=== PATIENT | female | born 1940 | race Caucasian/White ===

== ENCOUNTER → 2020-07-25 10:01 | Outpatient (BNVA) | payer MEDICARE, SELFPAY | PROVIDERS: PCP Internal Medicine; Visit Provider Hospitalist | DX: Q79.60 Ehlers-Danlos syndrome, unspecified (principal); K44.9 Diaphragmatic hernia without obstruction or gangrene; R06.00 Dyspnea, unspecified; K21.9 Gastro-esophageal reflux disease without esophagitis | CPT/HCPCS: Q3014 ==

== ENCOUNTER 2021-01-22 09:44 | Outpatient (REF) | payer MEDICARE, SELFPAY ==
--- NOTE | ~2021-01-22 | XR_ITS ---
EXAMINATION: XR CHEST CLINICAL INFORMATION: Dyspnea. COMPARISON: CT chest dated 04/28/2019 TECHNIQUE: Two views of the chest were obtained. FINDINGS: No focal airspace consolidation. No pleural effusion or pneumothorax. Stable cardiomediastinal silhouette. Redemonstration of a large hiatal hernia. XR/XR chest 2V IMPRESSION: No acute cardiopulmonary findings. Stable hiatal hernia.
== END 2021-01-22 09:45 | disposition home or self-care (01) ==
LOC: HO.XRAY 09:44
PROVIDERS: PCP Internal Medicine; Visit Provider Hospitalist
DX: J44.9 Chronic obstructive pulmonary disease, unspecified (principal); J45.40 Moderate persistent asthma, uncomplicated; Q79.60 Ehlers-Danlos syndrome, unspecified; K21.9 Gastro-esophageal reflux disease without esophagitis; R06.00 Dyspnea, unspecified; K44.9 Diaphragmatic hernia without obstruction or gangrene
CPT/HCPCS: 71046; 99212

== ENCOUNTER → 2021-07-20 13:30 | Outpatient (BNVA) | payer MEDICARE, OTHER, SELFPAY | PROVIDERS: PCP Internal Medicine; Visit Provider Hospitalist | DX: R06.00 Dyspnea, unspecified (principal); R05.9 Cough, unspecified; J45.40 Moderate persistent asthma, uncomplicated; J44.9 Chronic obstructive pulmonary disease, unspecified; K44.9 Diaphragmatic hernia without obstruction or gangrene; Q79.60 Ehlers-Danlos syndrome, unspecified | CPT/HCPCS: Q3014 ==

== ENCOUNTER 2021-08-21 09:55 | Outpatient (REF) | payer MEDICARE, OTHER, SELFPAY ==
--- NOTE | ~2021-08-21 | XR_ITS ---
EXAMINATION: XR CHEST CLINICAL INFORMATION: COPD COMPARISON: Previous chest x-ray January [address] April 2019 TECHNIQUE: 2 views of the chest were obtained. FINDINGS: The cardiac and mediastinal contours are stable. Cardiac silhouette is slightly enlarged. The thoracic aorta is calcified and tortuous. There is an air-fluid level behind the heart compatible with an esophageal hernia. Hilar and mediastinal contours are otherwise unremarkable. The lungs are clear. There is no pleural effusion or pneumothorax. There are degenerative changes of the spine. XR/XR chest 2V IMPRESSION: No evidence for acute disease in the chest.
== END 2021-08-21 09:56 | disposition home or self-care (01) ==
LOC: HO.XRAY 09:55
PROVIDERS: PCP Internal Medicine; Visit Provider Hospitalist
DX: R05.9 Cough, unspecified (principal); J44.9 Chronic obstructive pulmonary disease, unspecified; R06.00 Dyspnea, unspecified; K21.9 Gastro-esophageal reflux disease without esophagitis; Q79.60 Ehlers-Danlos syndrome, unspecified; K44.9 Diaphragmatic hernia without obstruction or gangrene
CPT/HCPCS: 71046; 94618; 99212

== ENCOUNTER → 2021-08-29 09:42 | Outpatient (BNVA) | payer MEDICARE, OTHER, SELFPAY | PROVIDERS: PCP Internal Medicine; Visit Provider Hospitalist | DX: Z13.89 Encounter for screening for other disorder (principal) | CPT/HCPCS: Q3014 ==

== ENCOUNTER → 2021-11-19 10:33 | Outpatient (BNVA) | payer MEDICARE, OTHER, SELFPAY | PROVIDERS: PCP Internal Medicine; Visit Provider Hospitalist | DX: J44.9 Chronic obstructive pulmonary disease, unspecified (principal) | CPT/HCPCS: Q3014 ==

== ENCOUNTER 2023-02-17 10:48 | Outpatient (REF) | payer MEDICARE, OTHER, SELFPAY ==
--- NOTE | ~2023-02-17 | XR_ITS ---
EXAMINATION: XR CHEST CLINICAL INFORMATION: Fever, unspecified COMPARISON: Chest 08/21/2021 TECHNIQUE: 2 views of the chest were obtained. FINDINGS: There is stable mild enlargement of the cardiac silhouette. The thoracic aorta is calcified and tortuous. There is a large hiatal hernia. The lungs are clear. No focal consolidation. No pleural effusion. There are moderate degenerative changes of the thoracic spine. XR/XR chest 2V IMPRESSION: No acute cardiopulmonary disease.
[2023-02-17 12:21] LABS: Influenza A PCR NEGATIVE (Negative); Influenza B PCR NEGATIVE (Negative); Resp Syncy Virus RNA Qual PCR NEGATIVE (Negative); SARS COV2 PCR INHOUSE NEGATIVE (Negative)
[2023-02-17 14:28] LABS: Appearance Urine Cloudy; Color Urine Dark Yellow; Glucose Urine UA Negative (Negative); Leukocyte Esterase Urine Small (1+) (Negative); Nitrite Urine Negative (Negative); PH 5.5 (5.0-9.0); UMIC TRIGGER UACC YES; Urine Blood Negative (Negative); Urine Ketones Trace mg/dL (Negative); Urine Protein 30 (1+) mg/dL (Neg-Trace)
[2023-02-17 14:55] LABS: Bacteria Urine None Seen (None Seen); UACC Culture Trigger YES; WBC Urine 0-5 /HPF (0-5)
== END 2023-02-17 10:49 | disposition home or self-care (01) ==
LOC: HO.LAB 10:48
PROVIDERS: PCP Internal Medicine; Visit Provider Hospitalist
DX: Z20.822 Contact with and (suspected) exposure to COVID-19 (principal); R50.9 Fever, unspecified; K21.00 Gastro-esophageal reflux disease with esophagitis, without bleeding; R06.00 Dyspnea, unspecified; K44.9 Diaphragmatic hernia without obstruction or gangrene; Q79.60 Ehlers-Danlos syndrome, unspecified; J44.9 Chronic obstructive pulmonary disease, unspecified; R01.1 Cardiac murmur, unspecified
CPT/HCPCS: 0241U; 71046; 81001; 87086; 99212

== ENCOUNTER 2023-02-17 10:48 | Outpatient (AMB) | payer MEDICARE, OTHER, SELFPAY ==
--- NOTE | 2023-02-17 10:54 | A.OFFVIS_ITS ---
Intake Vital Signs 02/17/23 10:56 Height 5 ft 1 in Weight 142 lb BMI 26.8 BP not taken reason Medical Reason Pulse 77 Pulse Source Pulse Oximeter Pulse Oximetry (%) 97 Oxygen Delivery Method Room Air Intake Visit Reasons: Asthma/COPD [employer] Officer Required: No Allergies albuterol [Ventolin HFA] Allergy (Severe, Verified 02/17/23 10:58) Difficulty Breathing aspirin Allergy (Severe, Verified 02/17/23 10:58) Internal Bleeding diazepam Allergy (Severe, Verified 02/17/23 10:58) Anaphylaxis lisinopril Allergy (Severe, Verified 02/17/23 10:58) Drop BP morphine Allergy (Severe, Verified 02/17/23 10:58) muscle spasm Procaine HCl Allergy (Severe, Uncoded 02/17/23 10:58) muscle spasm HPI HPI Comments History of Present Illness Details The patient is a 83-year-old woman with 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 She has a large hiatal hernia and is has significant reflux symptoms along with recurrent pneumonias. She is having issues with neuropathies and lower extremity weakness. 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 She is also feeling dizzy as well as the weakness. She is not sure of the symptoms have to do anything with her neck or for has do with the respiratory issues. Recently she had a fall hurting her right side of her chest. She did have x-rays done by her primary care doctor. No obvious fractures. But, still having significant chest discomfort. Respiratory phasic in nature. After few months she still having discomfort. Therefore, additional imaging studies are warranted. She did have a CT scan of the chest that we personally reviewed in the office. Her her her hiatal hernia is large causing some atelectasis in the left and right base. She also has some slight scarring to the left lower lobe. This is likely contributing to her crackles on examination. She also followed up with Neurology. She did have a cervical spine x-ray. She will be following up with Neurology soon. 07/25/2020 the patient has a telephone visit today. Overall the patient has been doing well. She has not required any doxycycline for recurrent respiratory infections. Although, more recently she did develop a slight cough with some chest congestion. She is monitoring closely the symptoms. The patient does have significant reflux symptoms. She is trying to cough up the secretions more regularly to avoid too much irritation. She is concerned about the vaccine. She is hoping to get soon. In the meantime she is staying safe in her home. Otherwise patient is without any other complaints. 01/22/2021 the patient is here for pulmonary follow-up visit. Overall the patient has been doing well from a respiratory status. Several months ago she did require her doxycycline for worsening cough and chest congestion. She has not recovered. Now she is dealing with recurrent UTIs. Her specialist placed the on Macrobid on a daily basis. She was concerned about the potential taken due to. For brief period time is okay for her to take them together. Otherwise she can always stop the Macrobid while she is in the doxycycline. The patient has been using her inhaled steroid. However, she did use her albuterol HFA when she developed some chest tightness and shortness of breath. But, in only made her worse. In the family there seems to be a her doxy go fat to regular albuterol. I will send her Xopenex HFA at this time. I am hopeful that she will tolerate this better. In the meantime she is also complaining of a runny nose and postnasal drip. She has been using fluticasone without any significant improvement. Will try ipratropium nasal spray at this time. 07/20/2021 the patient has a telehealth sick visit. Apparently the patient has been developing worsening respiratory symptoms. She was felt congested and coughing along with shortness of breath. She checked her oxygen levels and has been running in the 80s. The patient did not want to leave the house because the pandemic and her health issues. Therefore she did call the medical services with a visit her home. They were able to take a full history and physical. Currently she has been taking doxycycline. They did not feel strongly that she needed antibiotics no prednisone. However the patient is complaining that her breathing is no better and getting worse and she does want to try some prednisone. This has helped in the past. Again the patient is reluctant to come to our office. She also feels strongly that she needs oxygen. She states that she is willing to buy it through 1 of the outside vendors. I did explain to her that she will need to qualify for oxygen even if that is the case. She will need to have a 6 minute walk test. I did call the DME to see if they can perform a 6 minute walk test but, at this point that is not possibi lity. However we can start with a overnight oximetry to see if she qualifies for oxygen in that fashion. If she does qualify for oxygen I will provide her with oxygen Through 1 of the vendors. In the meantime she is going to complete the course of doxycycline and I will send a course of prednisone to see the provide some relief. If her condition worsens Over the weekend she needs to go to the hospital to be assessed further. 08/21/2021 the patient is here for a pulmonary follow-up visit. She is very concerned about COVID-19. She is taking all the precautions necessary. Were also taking all the precautions to keep her safe. She has had worsening respiratory symptoms. She had a home evaluation by dispatch. Ultimately we also had a telephone visit. She is concerned because she has been following her pulse oximeter and she has been noticing levels well in the 80s. She gets very short of breath. She feels that oxygen will make air improve her symptoms. She has had oxygen the past and did help her with her significant dyspnea. We did an overnight oximetry which she did not qualify for oxygen. Therefore, she came into the office reluctant due to COVID-19. But we did a 6 minute walk test and she did desaturate. The patient does require oxygen with activity. Will provide her with a pulse conserving device through the [employer] company, [employer]. In the meantime will have her get an x-ray to address her worsening respiratory status. The patient also has a cardiac condition. It appears that her murmur is a little more pronounced on examination. She does have a follow-up with the manager [employer] in the coming weeks. 08/29/2021 the patient has a telephone visit. Overall she is feeling better. The oxygen supplementation has been very affecting beneficial. She is already felt much more energetic and less dyspneic. She has been checking her oxygen levels and they have been in the mid 90s now. She has not seen any desaturations. She is working with the [employer] company just to make sure she gets smaller tanks. Due to her multiple elements she may benefit from a portable oxygen concentrator. In the meantime she did have a chest x-ray which we discussed and I personally reviewed. It appears that she does have a large hiatal hernia with the air-fluid level in the retrocardiac area. Otherwise the lungs appear to be pretty well aerated without any abnormalities. She also has some underlying kyphosis. 11/19/2021 the patient has a telephone visit today. She is staying home because of the increased COVID cases. Overall she is doing significantly better. The patient has been using the oxygen with activity and also sleep. This has made a do medically difference in her quality of life. She has less shortness of breath and less coughing. She also has noticed that her cardiac conditions and her lower extremity edema also has improved. She did follow-up with [employer] and felt that the murmur was improved as well. The patient h as not had any recent lower respiratory infections and denies any choking. She has not required any doxycycline. This point the patient is doing better. Will plan to follow-up in the fall. 02/17/2023 the patient is here for pulmonary follow-up visit. Since we last spoke the patient started developing some issues with feeling chills and feeling warm. The patient had gone in and out into a restaurant. During that time the patient started feeling nauseous and she vomited. She denies any obvious aspiration. After that she has been having more issues with headaches and some coughing. She has also been diagnosed with the UTI. She has been on chronic Macrobid for prophylaxis. She has noted increased symptoms. The patient also has had issues with her hearing with some fluid in the years. Today she had a temperature of 99.3 degrees which is very high for. We did swab her for flu RSV and COVID in that was negative. The patient had a question aspiration event. Denies any significant chest congestion at this point. Still unclear the etiology of the elevated temperature. Will going to request a chest x-ray and also a urinalysis. The patient does take Coumadin so therefore any antibiotic may be an issue. She does well on doxycycline. Although I will prescribe her a syndrome mycin. She can also take a small course of prednisone in conjunction in order to treat potential sinusitis. She does have fluid in the ears. She will call the Coumadin clinic today to let them know that she does have a prescription for azithromycin for 5 days. If she has a hard time tolerating it I did tell her that 3 days will be sufficient. [facility] Medical History (Updated 02/17/23 @ 11:27 by Aldair Rodriguez MD) Asthma Asthma-COPD overlap syndrome Cardiac murmur Chronic cough Dyspnea Ortiz-Danlos syndrome GERD (gastroesophageal reflux disease) Hiatal hernia Social History (Updated 01/22/21 @ 09:52 by Keke Ruffin [facility] Patient Tobacco Use Status: Never used Tobacco Review of Systems Const Reports chills, Reports fatigue, Reports fever(s) and Denies night sweats ENT Denies change in voice, Denies lip swelling, Denies mouth pain, Reports nasal congestion, Reports nasal discharge, Reports neck pain and Denies tongue swelling Card Denies chest pain, Denies dyspnea and Reports dyspnea on exertion Resp Reports cough, Denies dyspnea and Reports dyspnea on exertion GI Denies abdominal pain, Reports dyspepsia and Reports heartburn Musc Reports back pain and Reports neck pain Neuro Denies Neuro-related abnormal movements Psych Denies no additional complaints Endo Reports fatigue Benji/Lymph Denies easy bleeding and Denies lymphadenopathy Aller/Immun Denies lip swelling and Denies tongue swelling Physical Exam Vital Signs: Last Vital Signs Pulse 77 02/17/23 10:56 Pulse Ox 97 02/17/23 10:56 Oxygen Delivery Method Room Air 02/17/23 10:56 BMI result Body Mass Index 26.8 Const General: alert Neck Neck: Yes normal visual inspection, Yes full ROM and Yes no lymphadenopathy Chest Chest palpation & inspection: normal inspection of the chest Resp Auscultation: no rhonchi and diminished lung sounds Cardio Rate: regular rate Rhythm: regular rhythm Heart sounds: S1 normal heart sound present and S2 normal heart sound present GI Palpation (GI): Soft to palpation and nontender Auscultation: normal bowel sounds Skin General skin exam: rashes and/or lesions noted Assessment & Plan Assessment & Plan (1) Chronic cough: Code(s): R05 - Cough (2) GERD (gastroesophageal reflux disease): Code(s): K21.9 - Gastro-esophageal reflux disease without esophagitis Qualifiers: Esophagitis bleeding: without hemorrhage Esophagitis presence: with esophagitis Qualified Code(s): K21.00 - Gastro-esophageal reflux disease with esophagitis, without bleeding (3) Dyspnea: Code(s): R06.00 - Dyspnea, unspecified Qualifiers: Dyspnea type: dyspnea on exertion Qualified Code(s): R06.00 - Dyspnea, unspecified (4) Hiatal hernia: Code(s): K44.9 - Diaphragmatic hernia without obstruction or gangrene (5) Ortiz-Danlos syndrome: Comment: with recurrent bronchitis/sinusitus Code(s): Q79.60 - Ortiz-Danlos syndrome, unspecified (6) Asthma-COPD overlap syndrome: Code(s): J44.9 - Chronic obstructive pulmonary disease, unspecified (7) Cardiac murmur: Code(s): R01.1 - Cardiac murmur, unspecified Plan Continue 2 L pulse via nasal cannula with activity and sleep. She needs B cylinders. Start Azithromycin for 3-5 days. Needs to call the [facility] coumadin clinic start Prednisone x 5 days FLU/RSV/COVID swab was negative CXR UA ipratropium nasal spray as needed for postnasal drip Xopenex HFA instead her albuterol due to adverse reaction to the albuterol Continue Asmanex continue reflux diet and sleeping the head of bed elevated. Follow-up in 6 months Orders: Orders SARS-CoV2/FLU/RSV Today R50.9 - Fever, unspecified XR chest 2V Today R50.9 - Fever, unspecified UA CC w/rflx Micro + Cult Today R50.9 - Fever, unspecified Medications: New azithromycin 500 mg PO DAILY 5 days 5 tabs 0RF prednisone 20 mg PO DAILY 5 days 5 tabs 0RF Coding Level of Care Code Est Pt Level 4 (38544) Diagnoses Chronic cough R05 GERD (gastroesophageal reflux disease) K21.00 Esophagitis bleeding: without hemorrhage Esophagitis presence: with esophagitis Dyspnea R06.00 Dyspnea type: dyspnea on exertion Hiatal hernia K44.9 Ortiz-Danlos syndrome Q79.60 Asthma-COPD overlap syndrome J44.9 Cardiac murmur R01.1 Time Spent (min) 20
[2023-02-17 10:56] VITALS: PULSE 77; O2SAT 97; BMI 26.8
== END 2023-02-17 11:44 | disposition home or self-care (01) ==
PROVIDERS: PCP Internal Medicine; Visit Provider Hospitalist
DX: R05.9 Cough, unspecified (principal); K21.00 Gastro-esophageal reflux disease with esophagitis, without bleeding; R06.00 Dyspnea, unspecified; K44.9 Diaphragmatic hernia without obstruction or gangrene; Q79.60 Ehlers-Danlos syndrome, unspecified; J44.9 Chronic obstructive pulmonary disease, unspecified; R01.1 Cardiac murmur, unspecified
CPT/HCPCS: 99214